=== PATIENT | female | born 2000 | race Caucasian/White ===

== ENCOUNTER 2019-08-29 02:33 | Emergency (ER) | payer BC, OTHER ==
[2019-08-29 02:44] VITALS: PULSE 85
--- NOTE | 2019-08-29 03:17 | EDM.PDOC ---
ED HPI GENERAL MEDICAL PROBLEM - General Chief Complaint: Neck Problem Stated Complaint: NECK PAIN Time Seen by Provider: 08/29/19 02:54 Source of Information: Reports: Patient History Limitations: Reports: No Limitations - History of Present Illness INITIAL COMMENTS - FREE TEXT/NARRATIVE: Ms. John is a pleasant 19-year-old woman with a past medical history significant for untreated anxiety and panic disorder, who now presents the ED stating that she smacked the back of her lower neck on the underside of a counter that she was under, when she tried to stand up up, about 2 weeks ago. Since then, she has been experiencing neck pain, back pain, headaches, left hand numbness, and she states that she lost vision out of her right eye this past 08/27/2019. She states that she has had some nausea, but no vomiting. She states that she has been going to the chiropractor and receiving ultrasound treatments, as well as adjustments, which provide temporary relief, but nothing long-lasting. She states she has been taking ibuprofen without any relief. She has not seen her PCP regarding this issue. The patient is unable to explain specifically why she decided to come to the ED at this early hour. The patient denies recent fever, chills, sore throat, ear pain, nasal or sinus congestion, cough, dyspnea, chest pain, palpitations, vomiting, constipation, diarrhea, abdominal pain, urinary symptoms, recent weight gain or weight loss, recent bloody bowel movements or black bowel movements, recent joint aches, or rashes. Here in the ED, the patient is found to be hemodynamically stable, afebrile, saturating 95% on room air. The patient's PCP is HENRY Kruse. Bilateral Neck Pain Score (Numeric/FACES): 7 - Related Data Allergies Allergy/AdvReac Type Severity Reaction Status Date / Time No Known Allergies Allergy Verified 08/29/19 02:44 Home Meds: Home Meds EPINEPHrine [Epipen] 0.3 mg SQ ONCALL PRN 09/05/14 [History] Orphenadrine [Norflex] 1 tab PO Q12H PRN #14 tab.er 08/29/19 [Rx] Past Medical History HEENT History: Reports: Impaired Vision Other HEENT History: wears glasses Musculoskeletal History: Reports: Fracture (right ankle) Psychiatric History: Reports: Anxiety (untreated), Panic Attack (untreated) - Past Surgical History Musculoskeletal Surgical History: Reports: Amputation (partial, 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 ED EXAM, UPPER BACK/NECK PAIN - Physical Exam Exam: See Below Exam Limited By: No Limitations General Appearance: Alert, WD/WN, No Apparent Distress Eye Exam: Bilateral Eye: EOMI, Normal Inspection, PERRL Ears Exam: Normal External Exam, Normal Canal, Hearing Grossly Normal, Normal TMs Nose Exam: Normal Inspection, Normal Mucousa, No Blood Throat/Mouth Exam: Normal Inspection, Normal Lips, Normal Teeth, Normal Gums, Normal Oropharynx, Normal Voice, No Airway Compromise Head Exam: Atraumatic, Normocephalic Neck Exam: Full Range of Motion, Normal Alignment, Normal Inspection (No visible abnormality to the patient's lower cervical spine/upper thoracic spine, such as swelling, erythema, ecchymosis, or abrasion) Cardiovascular/Respiratory: Regular Rate, Rhythm, No M/R/G, Normal Peripheral Pulses, No JVD, Normal Breath Sounds, No Respiratory Distress GI/Abdominal: Normal Bowel Sounds, Soft, Non-Tender, No Organomegaly, No Distention, No Abnormal Bruit, No Mass (Female) Exam: Deferred Rectal (Female) Exam: Deferred Back Exam: Normal Inspection, Full Range of Motion, NT Extremities: Normal Inspection, Normal Range of Motion, No Pedal Edema, Normal Capillary Refill 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 As Tested, No Motor/Sensory Deficits, Alert, Oriented x 3 Psychiatric: Normal Affect Skin Exam: Normal Color, Warm/Dry Course - Vital Signs Last Recorded V/S: Last Vital Signs Temp 36.3 C 08/29/19 02:40 Pulse 85 08/29/19 02:40 Resp 18 08/29/19 02:40 BP 113/74 08/29/19 02:40 Pulse Ox 95 08/29/19 02:40 - Orders/Labs/Meds Orders: Active Orders 24 hr Category Date Time Status Thoracic Spine 2V [CR] Stat Exams 08/29/19 03:07 Ordered - Re-Assessments/Exams Free Text/Narrative Re-Assessment/Exam: 08/29/19 03:08 As above, the patient struck the back of her lower neck and upper thoracic vertebrae on the underside of a counter when she attempted to get up while under it about 2 weeks ago, and since then has been experiencing neck pain, back pain, headaches, numbness to her left hand, and loss of vision from her right eye. The latter 3 symptoms are most likely due to a migraine, while the former 2 are likely due to muscle spasm related to her injury. For tonight's purposes, I have ordered x-rays of the thoracic vertebrae, in order to exclude a chip fracture to her C7/T1 spinous process. If the spinous processes are not adequately visualized, I am going to recommend that she follow-up with her PCP for an MRI, as the amount of radiation from a CT scan, in my opinion, would not be warranted for this type of injury. 08/29/19 03:34 3-view radiographs of the thoracic vertebrae appear to be grossly normal. The lower cervical and upper thoracic spinous processes are adequately visualized, and no fractures are identified. Formal read per the Radiologist pending. 08/29/19 03:39 X-ray results discussed with the patient. I explained that I think the patient' s pain is due to a muscle spasm, and I recommended that we start her on Norflex. She agreed. I will submit a prescription for a 7-day course, that she can take along with [id number] ibuprofen. If her symptoms persist despite this regimen, I recommended that she follow-up with her PCP for further evaluation. 08/29/19 03:55 Notified by Rick DYKES that the patient would like a note to have the day off of work today. Departure - Departure Time of Disposition: 03:40 Disposition: Home, Self-Care 01 Condition: Good Clinical Impression: Neck muscle spasm - Discharge Information *PRESCRIPTION DRUG MONITORING PROGRAM REVIEWED*: Not Applicable *COPY OF PRESCRIPTION DRUG MONITORING REPORT IN PATIENT CINDY: Not Applicable Referrals: Karyn Augustin PA-C [Primary Care Provider] - Forms: ED Department Discharge, ED Return to Work/School Form Additional Instructions: You were seen in the emergency room for neck and back pain, along with a headache, numbness to your left hand, and temporary loss of vision of your right eye, after smacking the back of your lower neck on the underside of a counter about 2 weeks ago. Work-up in the ER included x-rays of your lower neck and thoracic vertebrae, which returned normal. No broken bones or bone chips were found. Based on your history, physical exam, and ER x-rays, the cause of your neck and back pain is most likely due to a muscle spasm related to the injury. You have been started on the muscle relaxant Norflex, and a prescription for Norflex has been sent to the [facility], located just south and across the [address] from [facility]. Take 1 tablet of Norflex every 12 hours, starting this evening, 08/29/2019, as prescribed. Norflex works well with ibuprofen. We recommend that you take 3 tablets (600 mg ) up to every 8 hours, with food, as needed for discomfort. Your headache, left hand numbness, and vision loss could be due to a migraine. If your symptoms persist, we recommend that you follow-up with your PCP, HENRY Kruse, for further evaluation. If any other problems, please do not hesitate to return to the ER. Sepsis Event Note - Evaluation Sepsis Screening Result: No Definite Risk - Focused Exam Vital Signs: Vital Signs Temp Pulse Resp BP Pulse Ox 08/29/19 02:40 36.3 C 85 18 113/74 95 Date Exam was Performed: 08/29/19 Time Exam was Performed: 03:08 - My Orders Last 24 Hours: My Active Orders 08/29/19 03:07 Thoracic Spine 2V [CR] Stat - Assessment/Plan Last 24 Hours: My Active Orders 08/29/19 03:07 Thoracic Spine 2V [CR] Stat
[2019-08-29] MEDS ORDERED: Orphenadrine 100 MG Tab.ER PO STA (03:39)
[2019-08-29 04:01] VITALS: BP 116/72
--- NOTE | 2019-08-29 06:48 | CR ---
Thoracic spine: AP, lateral and swimmer's views of the thoracic spine were obtained. Comparison: No previous cervical spine imaging. No discrete fracture or subluxation is seen. Minimal scoliosis is noted. Pedicles are intact. Vertebral body heights and disc spaces are maintained. Impression: 1. Minimal scoliosis. 2. Nothing acute seen on 3 view thoracic spine study. Diagnostic code #2 This report was dictated in MDT
== END 2019-08-29 03:50 | disposition home or self-care (01) ==
LOC: JD.ED 02:33
DX: M62.838 Other muscle spasm (principal)
CPT/HCPCS: 72070; 99283; A9270

== ENCOUNTER 2019-12-05 00:18 | Emergency (ER) | payer SELFPAY | END 2019-12-05 00:52 | disposition left against medical advice (07) | LOC: JD.ED 00:18 | DX: Z53.21 Procedure and treatment not carried out due to patient leaving prior to being seen by health care provider (principal) ==

== ENCOUNTER 2019-12-10 01:46 | Emergency (ER) | payer SELFPAY ==
[2019-12-10 01:55] VITALS: BP 134/75; PULSE 70
[2019-12-10] MEDS ORDERED: Ketorolac 30 MG/ML SDV IM ONE (02:08)
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
[2019-12-10] MEDS ORDERED: Cyclobenzaprine 10 MG Tab PO ONE (02:12)
== END 2019-12-10 02:28 | disposition home or self-care (01) ==
LOC: JD.ED 01:46
DX: S16.1XXA Strain of muscle, fascia and tendon at neck level, initial encounter (principal); X50.1XXA Overexertion from prolonged static or awkward postures, initial encounter
CPT/HCPCS: 96372; 99283; A9270; J1885

== ENCOUNTER 2020-05-27 09:43 | Emergency (ER) | payer SELFPAY ==
[2020-05-27 09:52] VITALS: BP 132/83; PULSE 73
[2020-05-27] MEDS ORDERED: Dextrose 5%-0.9% NaCl 1,000 ML IV SCH (10:00)
--- NOTE | 2020-05-27 10:01 | EDM.PDOC ---
ED HPI GENERAL MEDICAL PROBLEM - General Chief Complaint: Neurological Problem Stated Complaint: COME OVER FROM LAB Time Seen by Provider: 05/27/20 10:00 Source of Information: Reports: Patient History Limitations: Reports: No Limitations - History of Present Illness INITIAL COMMENTS - FREE TEXT/NARRATIVE: 20-year-old female presents to the ED after suffering a syncopal episode in the clinic lab [facility] this morning. She was sitting in the chair and blood apparently was obtained then she suddenly blanked out. Patient reports that she felt her vision getting DM and lightheaded during the phlebotomy. Nursing staff and [employer] operations consultant appreciated that she seemed to have upper extremity tonic movement with clenching at the elbow that lasted about 20 seconds. She awoke shortly after and could converse normally. She denies any headache. She has no past seizure history. She has not yet had anything to eat or drink this morning. Denies any possibility of . Last menstrual period around May 01. Due for it to show up any day. Apparently all the labs that her provider Shira Weeks had ordered were obtained. Plan patient will be monitored in the ED. She will be given a liter of D5 normal saline at open. An ECG will be obtained. Onset: Today, Sudden Onset Date: 05/27/20 Onset Time: 09:25 Duration: Minutes: Location: Reports: Generalized (syncopal event occurred while having phlebotomy draw at [facility]. unreposnive for about 20 seconds with re emergence tonic movemtn of both upper arms then return to normal consciousness. ) Quality: Reports: Other (Syncopal event well having phlebotomy done.) Severity: Moderate Improves with: Reports: Other (Proved spontaneously) Worsens with: Reports: None Context: Reports: Other (Syncopal event occurred well week receiving phlebotomy at clinic lab [facility]). Denies: Activity, Exercise, Lifting, Sick Contact, Trauma Associated Symptoms: Reports: No Other Symptoms Treatments MEDICAL CONCIERGE: Reports: Other (see below) - Related Data Allergies Allergy/AdvReac Type Severity Reaction Status Date / Time No Known Allergies Allergy Verified 05/27/20 09:52 Home Meds: Home Meds . 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 Denies: Fever, Chills HEENT: Reports: No Symptoms Respiratory: Reports: No Symptoms Cardiovascular: Reports: No Symptoms Endocrine: Reports: Fatigue GI/Abdominal: Reports: Decreased Appetite : Reports: No Symptoms, Other (Is no menstrual period was April 26, 2020) Musculoskeletal: Reports: Muscle Pain, Other (Generalized aches and pains.) Skin: Reports: No Symptoms ( Being worked up to rule out lupus or connective tissue disorder. History suggest fibromyalgia syndrome.) Neurological: Reports: Other (Couple event occurred this morning during phlebotomy draw) Psychiatric: Reports: No Symptoms Hematologic/Lymphatic: Reports: No Symptoms Immunologic: Reports: No Symptoms - Physical Exam Exam: See Below Exam Limited By: No Limitations General Appearance: Alert, WD/WN, No Apparent Distress, Other (Temperature is 36.1 degrees. Heart rate 73 and sinus respiratory is 18 with O2 sats of 96% room air BP is 132/83.) Eye Exam: Bilateral Eye: Normal Inspection (No scleral icterus no blepharal pallor.), PERRL Throat/Mouth: Normal Inspection, Normal Lips, Normal Teeth, Normal Oropharynx, Other Head Exam: Atraumatic, Normocephalic, Other Neck: Normal Inspection, Supple, Non-Tender (No outward signs of any head or facial trauma.), Full Range of Motion. No: Lymphadenopathy (L), Lymphadenopathy (R) Respiratory/Chest: No Respiratory Distress, Lungs Clear, Normal Breath Sounds, No Accessory Muscle Use Cardiovascular: Normal Peripheral Pulses, Regular Rate, Rhythm, No Edema, No Gallop, No Murmur, No Rub GI/Abdominal: Normal Bowel Sounds, Soft, Non-Tender, No Organomegaly, No Mass, Pelvis Stable, Other (No surgical scars) Neuro Exam (Abbreviated): Alert, Oriented, CN II-XII Intact, Normal Cognition, Normal Reflexes, No Motor/Sensory Deficits DTR: 2+: Patella (R), Patella (L), Achilles (R), Achilles (L), 3+: Bicep (R), Bicep (L) Back Exam: Normal Inspection, Full Range of Motion. No: CVA Tenderness (L), CVA Tenderness (R) Extremities: Normal Inspection, Normal Range of Motion, Non-Tender, No Pedal Edema Psychiatric: Normal Affect, Normal Mood Skin Exam: Warm, Dry, Intact, Normal Color, No Rash #1 Interpretation EKG Date: 05/27/20 Time: 10:08 Rhythm: Other (Sinus arrhythmia. Rate varies from 60-minute to 80/min) Rate (Beats/Min): 69 [place]: Normal P-Wave: Present QRS: Other (RSR prime wave leads V1 and V2 consider normal variant) ST-T: Normal QT: Normal EKG Interpretation Comments: Essentially normal ECG Course - Vital Signs Last Recorded V/S: Last Vital Signs Temp 36.1 C 05/27/20 09:46 Pulse 73 05/27/20 09:46 Resp 18 05/27/20 09:46 BP 132/83 05/27/20 09:46 Pulse Ox 96 05/27/20 09:46 - Orders/Labs/Meds Orders: Active Orders 24 hr Category Date Time Status EKG Documentation Completion [RC] STAT Care 05/27/20 10:00 Active Dextrose 5%-0.9% NaCl [Dextrose 5%-Normal Saline] 1,000 Med 05/27/20 10:00 Active ml IV ASDIRECTED Medication Orders Dextrose/Sodium Chloride (Dextrose 5%-Normal Saline) 1,000 mls @ 999 mls/hr IV ASDIRECTED JOSÉ MIGUEL Last Admin: 05/27/20 10:11 Dose: 999 mls/hr Documented by: BARBARA Meds: Medications Generic Name Dose Route Start Last Admin Trade Name Freq PRN Reason Stop Dose Admin Dextrose/Sodium Chloride 1,000 mls @ 999 mls/hr 05/27/20 10:00 05/27/20 10:11 Dextrose 5%-Normal Saline IV 999 mls/hr ASDIRECTED [facility] Administration - Radiology Interpretation Free Text/Narrative:: 20-year-old female brought to the ED after she suffered a syncopal event during phlebotomy at the clinic lab the side of the hospital this morning. She recognized that she was experiencing dim vision and felt like she was going to go out. She stayed in the chair. Apparently she was unresponsive for about 20 seconds then went as she was regaining consciousness she had a reemergence phenomenon with tonic movement of both upper extremities at the elbow. When she regained consciousness she was alert oriented and able to answer all questions appropriately with no evidence of any seizure activity. Plan routine labs to be performed. She has not eaten or drank much in the last 24 hours. Will be given a liter of D5 normal saline at open. - Re-Assessments/Exams Free Text/Narrative Re-Assessment/Exam: 05/27/20 11:29 labs have been obtained. Sodium was 140 with potassium 3.9 chloride 103 with a bicarb of 25. Anion gap is slightly elevated to 15.9. Glucose was 91 with a BUN of 13 and a creatinine of 0.6 GFR greater than 60. Calcium was 10.1 protein 9.0 with an albumin fraction of 4.8. CRP was less than 0.2 TSH is 1.588. Sed rate was 3 normal. Total white count of 6.35 with auto differential of 63.6% neutrophils. Hemoglobin is elevated at 16.1 with hematocrit of 47.3 suggesting mild hemoconcentration platelet counts 245,000. Monospot was negative rheumatoid factor was negative. Departure - Departure Time of Disposition: 11:35 Disposition: Home, Self-Care 01 Condition: Fair Clinical Impression: Vasovagal syncope - Discharge Information *PRESCRIPTION DRUG MONITORING PROGRAM REVIEWED*: Not Applicable *COPY OF PRESCRIPTION DRUG MONITORING REPORT IN PATIENT CINDY: Not Applicable Referrals: Karyn Augustin PA-C [Primary Care Provider] - Forms: ED Department Discharge Additional Instructions: Evaluation in the emergency room today in regards to syncopal event or fainting spell that occurred while you were having blood draw at the clinic lab. You apparently went unresponsive for about 20 seconds and then when you regained consciousness you were alert oriented and could speak normal. There was no evidence of any seizure activity. I have part of the lab work that was drawn there such as a total white count hemoglobin and chemistry which is all normal. You will have to follow-up with Shira Micky for the remainder of the lab re sults checking for rheumatoid arthritis lupus etc. Today her blood volume was found to be a little on the low side and you had not yet eaten or drank yet today. Suggest at least 2 bottles of Gatorade today to bring your blood electrolytes and volume back up to normal. You did complete a full liter of IV fluids while in the ED. Sepsis Event Note (ED) - Evaluation Sepsis Screening Result: No Definite Risk - Focused Exam Vital Signs: Vital Signs Temp Pulse Resp BP Pulse Ox 05/27/20 09:46 36.1 C 73 18 132/83 96 - My Orders Last 24 Hours: My Active Orders 05/27/20 10:00 EKG Documentation Completion [RC] STAT Dextrose 5%-0.9% NaCl [Dextrose 5%-Normal Saline] 1,000 ml IV ASDIRECTED - Assessment/Plan Last 24 Hours: My Active Orders 05/27/20 10:00 EKG Documentation Completion [RC] STAT Dextrose 5%-0.9% NaCl [Dextrose 5%-Normal Saline] 1,000 ml IV ASDIRECTED
== END 2020-05-27 11:53 | disposition home or self-care (01) ==
LOC: JD.ED 09:43
DX: R55 Syncope and collapse (principal)
CPT/HCPCS: 82962; 93005; 99284; J7042; 93010

== ENCOUNTER 2020-06-11 10:51 | Emergency (ER) | payer SELFPAY ==
--- NOTE | 2020-06-11 11:31 | EDM.PDOC ---
ED HPI GENERAL MEDICAL PROBLEM - General Chief Complaint: [employer] Problem Stated Complaint: SPOTTING/6 WEEKS PG Time Seen by Provider: 06/11/20 11:05 Source of Information: Reports: Patient, RN Notes Reviewed History Limitations: Reports: No Limitations - History of Present Illness INITIAL COMMENTS - FREE TEXT/NARRATIVE: Patient is a 20-year-old female who presents to the ED for evaluation of her vaginal spotting in . Patient is a , [employer] is Dr. Velazco. The patient states that she tried calling her [employer]'s office however they were too busy and could not fit her in the schedule for today's purposes. Patient states last night she began developing some pink-tinged very light-colored vaginal spotting, no cramping or pain. She states that this continued today, and she became concerned. She believes she is 6 weeks , her last menstrual period was 04/30/2020. Patient's not had any fevers or chills, cough or shortness of breath, or any other sick-like symptoms. She denies any bright red blood or other vaginal discharge. She is not complaining of any urinary complaints like dysuria/frequency/urgency. - Related Data Allergies Allergy/AdvReac Type Severity Reaction Status Date / Time No Known Allergies Allergy Verified 06/11/20 11:07 Home Meds: Home Meds Vits #93/Iron Fum/FA [ Formula Tablet] 1 each PO DAILY 06/11/20 [History] Past Medical History HEENT History: Reports: Impaired Vision Other HEENT History: wears glasses [employer] History: Reports: Musculoskeletal History: Reports: Fracture Psychiatric History: Reports: Anxiety, Panic Attack - Past Surgical History Musculoskeletal Surgical History: Reports: Amputation Other Musculoskeletal Surgeries/Procedures:: sx on R ring finger when pt was younger Social & Family History - Family History Family Medical History: No Pertinent Family History - Tobacco Use Tobacco Use Status *Q: Never Tobacco User - Caffeine Use Caffeine Use: Reports: None - Recreational Drug Use Recreational Drug Use: No - Living Situation & Occupation Living situation: Reports: Single, with Significant Other (Boyfriend) Occupation: Employed ([employer]) ED ROS GENERAL - Review of Systems Review Of Systems: Comprehensive ROS is negative, except as noted in HPI. ED EXAM, RENAL/ - Physical Exam Exam: See Below Exam Limited By: No Limitations General Appearance: Alert, WD/WN, No Apparent Distress Respiratory/Chest: No Respiratory Distress, Lungs Clear, Normal Breath Sounds, No Accessory Muscle Use, Chest Non-Tender Cardiovascular: Normal Peripheral Pulses, Regular Rate, Rhythm GI/Abdominal: Normal Bowel Sounds, Soft, Non-Tender, No Distention, No Mass (Female) Exam: Deferred Extremities: Normal Inspection, Normal Capillary Refill Neurological: Alert, Oriented, Normal Cognition, No Motor/Sensory Deficits Psychiatric: Normal Affect, Normal Mood Skin Exam: Warm, Dry, Intact, Normal Color, No Rash Course - Vital Signs Last Recorded V/S: Last Vital Signs Temp 97.6 F 06/11/20 11:04 Pulse 79 06/11/20 11:04 Resp 16 06/11/20 11:04 BP 132/89 06/11/20 11:04 Pulse Ox 100 06/11/20 11:04 - Orders/Labs/Meds Orders: Active Orders 24 hr Category Date Time Status ABO/RH TYPE [BBK] Stat Lab 06/11/20 11:40 Received Labs: Laboratory Tests 06/11/20 06/11/20 Range/Units 11:40 11:40 WBC 8.35 (3.98-10.04) K/mm3 RBC 4.61 (3.98-5.22) M/mm3 Hgb 14.8 (11.2-15.7) gm/dl Hct 42.6 (34.1-44.9) % MCV 92.4 (79.4-94.8) fl MCH 32.1 (25.6-32.2) pg MCHC 34.7 (32.2-35.5) g/dl RDW Std Deviation 41.3 (36.4-46.3) fL Plt Count 250 (182-369) K/mm3 MPV 10.2 (9.4-12.3) fl Neut % (Auto) 71.6 H (34.0-71.1) % Lymph % (Auto) 20.6 (19.3-51.7) % [place] % (Auto) 6.8 (4.7-12.5) % Eos % (Auto) 0.5 L (0.7-5.8) Baso % (Auto) 0.4 (0.1-1.2) % Neut # (Auto) 5.98 (1.56-6.13) K/mm3 Lymph # (Auto) 1.72 (1.18-3.74) K/mm3 [place] # (Auto) 0.57 H (0.24-0.36) K/mm3 Eos # (Auto) 0.04 (0.04-0.36) K/mm3 Baso # (Auto) 0.03 (0.01-0.08) K/mm3 HCG, Quant 07803.0 mIU/mL - Re-Assessments/Exams Free Text/Narrative Re-Assessment/Exam: 06/11/20 11:30 Patient presents to the ED for her vaginal spotting in . For today's purposes we will go ahead and get a transvaginal ultrasound, get baseline labs to include hCG quantitative level, CBC, and ABO/Rh typing. The patient not having much for abdomen cramping, highly suspect this is more compatible with implementation of the fetus onto the uterus lining. 06/11/20 12:34 Patient CBC has resulted and her hemoglobin is within normal limits. Ultrasound has been performed, fetus is intrauterine, aged at 6 weeks 0 days, with a heart rate of 120 bpm. There is a small corpus luteum cyst within the maternal right ovary however there is no other subchorionic hemorrhage or source of bleeding. Again highly likely the patient was experiencing implantation of the fetus onto the uterine lining causing her bleeding. Still awaiting hCG quantitative level and ABO Rh typing. 06/11/20 13:07 The patient's hCG quantitative level was 27,091, there was an error with ABO Rh blood typing, and they were running this, the patient would not like to wait around for the results of this, we will call her and make her aware of the results as they show up. Patient was okay with this plan. Departure - Departure Time of Disposition: 13:08 Disposition: Home, Self-Care 01 Condition: Good Clinical Impression: Vaginal bleeding affecting early - Discharge Information *PRESCRIPTION DRUG MONITORING PROGRAM REVIEWED*: No *COPY OF PRESCRIPTION DRUG MONITORING REPORT IN PATIENT CINDY: No Instructions: Vaginal Bleeding During , First Trimester, [id number] Referrals: Karyn Augustin PA-C [Primary Care Provider] - Forms: ED Department Discharge Additional Instructions: You were evaluated in the ER today regarding your vaginal bleeding in . You did have some labs drawn, and these were within normal limits, your hCG level was 27,091 , there was a lab error with your blood typing; we will call you if there is any urgent need after this has been resulted, otherwise this will be available for your next OB visit. Your ultrasound demonstrated an intrauterine fetus at the gestational age of 6 weeks 0 days with a heart rate of 120 bpm. Recommend that you do not lift anything heavier than a gallon of milk (5 lbs), do not engage in sexual activities, try to get as much pelvic rest as possible for the next few days. Please try not to exert yourself, rest and relax, and take it easy. If you are bleeding through more than 1-2 maxi pads every couple hours, this would be cause for concern to return to the ER for immediate management. Please follow up with your [employer] at your next scheduled appointment. Please return to the ED at any time if your symptoms change or worsen. Sepsis Event Note (ED) - Evaluation Sepsis Screening Result: No Definite Risk - Focused Exam Vital Signs: Vital Signs Temp Pulse Resp BP Pulse Ox 06/11/20 11:04 97.6 F 79 16 132/89 100 - My Orders Last 24 Hours: My Active Orders 06/11/20 11:40 ABO/RH TYPE [BBK] Stat - Assessment/Plan Last 24 Hours: My Active Orders 06/11/20 11:40 ABO/RH TYPE [BBK] Stat
--- NOTE | 2020-06-11 12:31 | US ---
First trimester obstetrical ultrasound: Multiple real-time images were obtained transvaginally. Comparison: No previous study for current is available. Dates: Working NO: 02/04/21, gestational age 6 weeks 0 days Current ultrasound: NO 02/04/21, gestational age 6 weeks 0 days Single intrauterine gestation is seen. Small pole and yolk sac are seen. Small corpus luteum cyst is noted within the internal right ovary measuring 2.8 cm. Maternal right ovary is unremarkable. Measurements: [place]-rump length: 0.35 cm - 6 weeks 0 days BPM: 120 bpm Impression: 1. Single intrauterine gestation. Dates as noted above. 2. Small corpus luteum cyst within the maternal right ovary. 3. No etiology is seen for the patient's bleeding. Diagnostic code #1
[2020-06-11 13:38] VITALS: BP 106/61; PULSE 66
== END 2020-06-11 13:17 | disposition home or self-care (01) ==
LOC: JD.ED 10:51
DX: O20.9 Hemorrhage in early pregnancy, unspecified (principal); Z3A.01 Less than 8 weeks gestation of pregnancy
CPT/HCPCS: 36415; 76817; 76817-26; 84702; 85025; 86900; 86901; 99283; 99284-25

== ENCOUNTER 2020-06-26 07:15 | Emergency (ER) | payer MEDICAID ==
--- NOTE | 2020-06-26 07:42 | EDM.PDOC ---
ED HPI GENERAL MEDICAL PROBLEM - General Chief Complaint: Gastrointestinal Problem Stated Complaint: 8 WEEKS PREG VOMITING UNABLE TO EAT OR DRINK Time Seen by Provider: 06/26/20 07:36 Source of Information: Reports: Patient History Limitations: Reports: No Limitations - History of Present Illness INITIAL COMMENTS - FREE TEXT/NARRATIVE: 20-year-old female presents to the ED with continuous nausea and vomiting in . She is in first term of her first . Last menstrual period was April 29 with EDC set at February 04, 2021. No spotting or bleeding per vagina. She did keep down a small amount of solids yesterday at noon but nothing since. Emesis has been primarily bilious. No associated diarrhea. No previous abdominal surgery. Feels lightheaded dizzy and weak upon standing. She is currently on Reglan 5 mg tablets and she did take 1 this morning. She does not find them helping very much. Onset: Other (Has had nausea and vomiting off and on for the last 2 weeks.) Onset Date: 06/10/20 Duration: Day(s):, Waxing/Waning Location: Reports: Abdomen (intractable nausea and vomitng. ) Quality: Reports: Other (nausea with vomiting tis am.) Severity: Moderate Improves with: Reports: None, Medication (reglan 5mg tab orally has not helped. ) Context: Reports: Other (first trimester of . ). Denies: Activity, Exercise, Lifting, Sick Contact, Trauma Associated Symptoms: Reports: Nausea/Vomiting, Other (fatigue). 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 ) - Related Data Allergies Allergy/AdvReac Type Severity Reaction Status Date / Time No Known Allergies Allergy Verified 06/26/20 07:26 Home Meds: Home Meds Vits #93/Iron Fum/FA [ Formula Tablet] 1 each PO DAILY 06/11/20 [History] Metoclopramide HCl 10 mg PO TID PRN 06/26/20 [History] Sertraline [Zoloft] 25 mg PO DAILY 06/26/20 [History] Past Medical History HEENT History: Reports: Impaired Vision Other HEENT History: wears glasses [employer] History: Reports: : 1 Para: 0 LMP (Approximate): 2 Months Musculoskeletal History: Reports: Fracture Psychiatric History: Reports: Anxiety, Panic Attack - Past Surgical History Musculoskeletal Surgical History: Reports: Amputation Other Musculoskeletal Surgeries/Procedures:: sx on R ring finger when pt was younger Social & Family History - Family History Family Medical History: No Pertinent Family History - Caffeine Use Caffeine Use: Reports: None - Living Situation & Occupation Living situation: Reports: Single, with Significant Other (Boyfriend) Occupation: Employed ([employer]) ED ROS GENERAL - Review of Systems Review Of Systems: See Below Constitutional: Reports: Malaise, Weakness, Fatigue, Decreased Appetite. Denies: Fever, Chills, Weight Loss HEENT: Reports: No Symptoms Respiratory: Reports: No Symptoms Cardiovascular: Reports: No Symptoms Endocrine: Reports: No Symptoms GI/Abdominal: Reports: Nausea, Vomiting ( bilious emesis) : Reports: Frequency Musculoskeletal: Reports: No Symptoms Skin: Reports: No Symptoms Neurological: Reports: No Symptoms Psychiatric: Reports: No Symptoms Hematologic/Lymphatic: Reports: No Symptoms Immunologic: Reports: No Symptoms ED EXAM - Physical Exam Exam: See Below Exam Limited By: No Limitations General Appearance: Alert, WD/WN, No Apparent Distress, Other (Temperature is 36.4 degrees with a heart rate of 73 and sinus. Respiratory is 18 with O2 sats 100% room air BP 05[birth year]01/1971.) Eye Exam: Bilateral Eye: Normal Inspection (No scleral icterus or blepharal pallor.), PERRL Throat/Mouth: Other Head: Atraumatic, Normocephalic Neck: Normal Inspection (Tongue is mildly dry and coated.), Supple, Non-Tender, Full Range of Motion. No: Lymphadenopathy (L), Lymphadenopathy (R) Respiratory/Chest: No Respiratory Distress, Lungs Clear, Normal Breath Sounds Cardiovascular: Normal Peripheral Pulses, Regular Rate, Rhythm, No Edema, No Gallop, No JVD, No Murmur GI/Abdominal Exam: Normal Bowel Sounds, Soft, Non-Tender, No Organomegaly, No Distention, Other (Uterine fundus is not palpable abdominally. No surgical wounds.) Extremities: Normal Inspection, Normal Range of Motion, Non-Tender, No Pedal Edema Neurological: Alert, Oriented, CN II-XII Intact, Normal Cognition, Normal Gait Psychiatric: Normal Affect, Normal Mood Skin Exam: Warm, Dry, Intact, Normal Color, No Rash Course - Vital Signs Last Recorded V/S: Last Vital Signs Temp 36.4 C 06/26/20 07:20 Pulse 73 06/26/20 07:20 Resp 18 06/26/20 07:20 BP 121/72 06/26/20 07:20 Pulse Ox 100 06/26/20 07:20 Orthostatic Blood Pressure [ 112/67 Standing] Orthostatic Blood Pressure [ 114/69 Sitting] Orthostatic Blood Pressure [ 112/65 Supine] - Orders/Labs/Meds Orders: Active Orders 24 hr Category Date Time Status Orthostatic Vital Signs [RC] ASDIRECTED Care 06/26/20 07:37 Active Dextrose 5%-Lactated Ringers 1,000 ml Med 06/26/20 07:45 Active IV ASDIRECTED Medication Orders Dextrose/Lactated Ringer's (Dextrose 5%-Lactated Ringers) 1,000 mls @ 999 mls/hr IV ASDIRECTED [facility] Admin: 06/26/20 08:18 Dose: 999 mls/hr Documented by: MARCELA Labs: Laboratory Tests 06/26/20 06/26/20 06/26/20 Range/Units 08:10 08:10 09:00 WBC 10.72 H (3.98-10.04) K/mm3 RBC 4.26 (3.98-5.22) M/mm3 Hgb 13.6 (11.2-15.7) gm/dl Hct 40.3 (34.1-44.9) % MCV 94.6 (79.4-94.8) fl MCH 31.9 (25.6-32.2) pg MCHC 33.7 (32.2-35.5) g/dl RDW Std Deviation 42.5 (36.4-46.3) fL Plt Count 244 (182-369) K/mm3 MPV 10.1 (9.4-12.3) fl Neut % (Auto) 77.0 H (34.0-71.1) % Lymph % (Auto) 15.3 L (19.3-51.7) % [place] % (Auto) 6.6 (4.7-12.5) % Eos % (Auto) 0.7 (0.7-5.8) Baso % (Auto) 0.3 (0.1-1.2) % Neut # (Auto) 8.25 H (1.56-6.13) K/mm3 Lymph # (Auto) 1.64 (1.18-3.74) K/mm3 [place] # (Auto) 0.71 H (0.24-0.36) K/mm3 Eos # (Auto) 0.08 (0.04-0.36) K/mm3 Baso # (Auto) 0.03 (0.01-0.08) K/mm3 Sodium 139 (136-145) mEq/L Potassium 3.8 (3.5-5.1) mEq/L Chloride 102 (98-107) mEq/L Carbon Dioxide 27 (21-32) mEq/L Anion Gap 13.8 (5-15) BUN 9 (7-18) mg/dL Creatinine 0.5 L (0.55-1.02) mg/dL Est Cr Clr Drug Dosing 152.40 mL/min Estimated GFR (MDRD) > 60 (>60) mL/min BUN/Creatinine Ratio 18.0 (14-18) Glucose 80 (74-106) mg/dL Calcium 9.3 (8.5-10.1) mg/dL Magnesium 2.0 (1.8-2.4) mg/dl Total Bilirubin 1.0 (0.2-1.0) mg/dL AST 13 L (15-37) U/L ALT 22 (14-59) U/L Alkaline Phosphatase 65 (46-116) U/L Total Protein 7.9 (6.4-8.2) g/dl Albumin 4.1 (3.4-5.0) g/dl Globulin 3.8 gm/dL Albumin/Globulin Ratio 1.1 (1-2) Urine Color Yellow (Yellow) Urine Appearance Clear (Clear) Urine pH 7.5 (5.0-8.0) Ur Specific [place] 1.020 (1.005-1.030) Urine Protein Negative (Negative) Urine Glucose (UA) Negative (Negative) Urine Ketones Negative (Negative) Urine Occult Blood Negative (Negative) Urine Nitrite Negative (Negative) Urine Bilirubin Negative (Negative) Urine Urobilinogen 0.2 (0.2-1.0) Ur Leukocyte Esterase Negative (Negative) Urine RBC 0-5 (0-5) /hpf Urine WBC 0-5 (0-5) /hpf Ur Squamous Epith Cells 0-5 (0-5) /hpf Urine Bacteria Few (FEW) /hpf Urine Mucus Few (FEW) /hpf Meds: Medications Generic Name Dose Route Start Last Admin Trade Name Bear PRN Reason Stop Dose Admin Dextrose/Lactated Ringer's 1,000 mls @ 999 mls/hr 06/26/20 07:45 06/26/20 08:18 Dextrose 5%-Lactated Ringers IV 999 mls/hr ASDIRECTED JOSÉ MIGUEL Administration Discontinued Medications Generic Name Dose Route Start Last Admin Trade Name Freq PRN Reason Stop Dose Admin Diphenhydramine HCl 12.5 mg 06/26/20 07:45 06/26/20 08:14 Diphenhydramine 50 Mg/Ml Sdv IVPUSH 06/26/20 07:46 12.5 mg ONETIME ONE Administration Promethazine HCl 25 mg/ Sodium 51 mls @ 100 mls/hr 06/26/20 07:43 06/26/20 08:20 Chloride IV 06/26/20 08:13 100 mls/hr ONETIME ONE Administration - Radiology Interpretation Free Text/Narrative:: 20-year-old female presents to the ED with recurrent nausea and vomiting in . She did keep down little bit of food yesterday at noon. Nothing since with persistent nausea Reglan 5 mg p.o. x2 last night and again this morning without relief. She feels lightheaded weak and dizzy upon standing. Orthostatic BPs to be checked. She will have CBC CMP CRP and a urinalysis performed. Benign abdominal examination she is afebrile. IV will be D5 normal saline at open. Phenergan 25 mg IV with Benadryl 12.5 mg IV to prevent any dystonic reaction between the Reglan and the Phenergan. - Re-Assessments/Exams Free Text/Narrative Re-Assessment/Exam: 06/26/20 08:36 Hematology reveals a slightly elevated white count at 10.72. The auto differential shows 77% neutrophils. Hemoglobin is 13.6 with hematocrit of 40.3. Platelet count 244,000 06/26/20 09:23 she is feeling better as far as the nausea go and is not overwhelmingly fatigued from the Phenergan and Benadryl. Plan will be to open her IV up to full so she has a completed full liter of IV fluids infused before discharge. 06/26/20 10:21 is completed a full liter of IV fluids and feels much improved. She will be discharged to home to follow-up with her [employer] as planned. She will return if she has similar problems over the next 2 to 3 days for IV fluid replacement. Departure - Departure Time of Disposition: 10:21 Disposition: Home, Self-Care 01 Condition: Fair Clinical Impression: Nausea and vomiting during prior to 22 weeks gestation, Volume depletion - Discharge Information *PRESCRIPTION DRUG MONITORING PROGRAM REVIEWED*: Not Applicable *COPY OF PRESCRIPTION DRUG MONITORING REPORT IN PATIENT CINDY: Not Applicable Instructions: Nausea and Vomiting, Adult, [id number], Morning Sickness, [id number], Dehydration, Adult, [id number] Referrals: Karyn Augustin PA-C [Primary Care Provider] - Forms: ED Department Discharge Additional Instructions: Evaluation in the emergency room today in regards to recurrent nausea and vomiting particularly nausea off and on during this . Last meal was yesterday at noon. You were therefore treated with a liter of intravenous fluids D5 normal saline to provide hydration and fluids for the baby. Nausea and vomiting was treated with Phenergan 25 mg intravenously and Benadryl 12.5 mg IV as well. Continue Reglan tablets 5 mg every 6 hours as needed for relief of nausea vomiting. Try and keep a little something in your stomach at all times such as crackers or bread etc. Follow-up with personal care physician if any further problems occur. Try and drink sips of Gatorade or Powerade as this is almost identical to intravenous fluid replacement therapy to maintain hydration. Sepsis Event Note (ED) - Evaluation Sepsis Screening Result: No Definite Risk - Focused Exam Vital Signs: Vital Signs Temp Pulse Resp BP Pulse Ox 06/26/20 07:20 36.4 C 73 18 121/72 100 - My Orders Last 24 Hours: My Active Orders 06/26/20 07:37 Orthostatic Vital Signs [RC] ASDIRECTED 06/26/20 07:45 Dextrose 5%-Lactated Ringers 1,000 ml IV ASDIRECTED - Assessment/Plan Last 24 Hours: My Active Orders 06/26/20 07:37 Orthostatic Vital Signs [RC] ASDIRECTED 06/26/20 07:45 Dextrose 5%-Lactated Ringers 1,000 ml IV ASDIRECTED
[2020-06-26] MEDS ORDERED: Promethazine 25 MG in Sodium Chloride 0.9% 50 ML IV ONE (07:43)
[2020-06-26] MEDS ORDERED: diphenhydrAMINE 50 MG/ML SDV IVPUSH ONE (07:45)
[2020-06-26] MEDS ORDERED: Dextrose 5%-Lactated Ringers 1,000 ML IV SCH (07:45)
[2020-06-26 10:24] VITALS: BP 117/61; PULSE 68
== END 2020-06-26 10:23 | disposition home or self-care (01) ==
LOC: JD.ED 07:15
DX: O99.281 Endocrine, nutritional and metabolic diseases complicating pregnancy, first trimester (principal); E86.9 Volume depletion, unspecified; O99.111 Other diseases of the blood and blood-forming organs and certain disorders involving the immune mechanism complicating pregnancy, first trimester; D72.829 Elevated white blood cell count, unspecified; Z3A.08 8 weeks gestation of pregnancy
CPT/HCPCS: 36415; 80053; 81001; 83735; 85025; 96365; 96375; 99284; J1200; J2550; J7121; 99283

== ENCOUNTER 2020-09-01 16:32 | Emergency (ER) | payer MEDICAID ==
[2020-09-01 16:51] VITALS: BP 133/75; PULSE 82
--- NOTE | 2020-09-01 17:13 | EDM.PDOC ---
ED HPI GENERAL MEDICAL PROBLEM - General Chief Complaint: Abdominal Pain Stated Complaint: RT SIDE PAIN/ 18WEEK PREG Time Seen by Provider: 09/01/20 16:58 Source of Information: Reports: Patient History Limitations: Reports: No Limitations - History of Present Illness INITIAL COMMENTS - FREE TEXT/NARRATIVE: Patient presents with acute onset right lower quadrant pain started about 4:00 this evening. Was sharp stabbing pain. However doubled up. He is off some but still present. Not associate with any nausea or vomiting no fevers chills or sweats no coughing or cold symptoms no chest pain or breathing problems no burning pain or blood in the urine no vaginal discharge or vaginal bleeding. This is the patient's second the first 1 ended in a miscarriage and cu rrently is 18 weeks with this . She has had some morning nausea and occasional vomiting. Her initial ultrasound was at 12 weeks. Denies any vaginal pain no history of any PID, has had bacterial vaginosis and a yeast infection but no signs of any discharge with this. No back pain or flank pain no history of kidney stones or kidney infection has had some bladder infection on occasion. Right Lower Abdomen Pain Score (Numeric/FACES): 7 - Related Data Allergies Allergy/AdvReac Type Severity Reaction Status Date / Time No Known Allergies Allergy Verified 09/01/20 16:50 Home Meds: Home Meds Vits #93/Iron Fum/FA [ Formula Tablet] 1 each PO DAILY 06/11/20 [History] Past Medical History HEENT History: Reports: Impaired Vision Other HEENT History: wears glasses, contacts. 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 Psychiatric History: Reports: Anxiety, Depression, Panic Attack - Infectious Disease History Infectious Disease History: Reports: Influenza - Past Surgical History Musculoskeletal Surgical History: Reports: Amputation Other Musculoskeletal Surgeries/Procedures:: sx on R ring finger when pt was younger Social & Family History - Family History Family Medical History: No Pertinent Family History - Caffeine Use Caffeine Use: Reports: Coffee, Soda, Tea - Living Situation & Occupation Living situation: Reports: Single, with Significant Other (Boyfriend) Occupation: Employed ([employer]) ED ROS GENERAL - Review of Systems Review Of Systems: See Below Constitutional: Denies: Fever, Chills, Diaphoresis HEENT: Denies: Rhinitis, Throat Pain Respiratory: Denies: Shortness of Breath, Cough Cardiovascular: Denies: Chest Pain, Lightheadedness GI/Abdominal: Reports: Abdominal Pain, Diarrhea, Nausea, Vomiting. Denies: Black Stool, Bloody Stool, Constipation : Denies: Discharge, Dysuria, Flank Pain, Frequency, Hematuria, Pain Musculoskeletal: Denies: Back Pain Neurological: Reports: No Symptoms. Denies: Headache Psychiatric: Reports: No Symptoms ED EXAM, GI/ABD - Physical Exam Exam: See Below Exam Limited By: No Limitations General Appearance: Alert, WD/WN, No Apparent Distress Throat/Mouth: Normal Oropharynx Neck: Normal Inspection Respiratory/Chest: No Respiratory Distress, Lungs Clear, Normal Breath Sounds Cardiovascular: Normal Peripheral Pulses, Regular Rate, Rhythm, No Edema GI/Abdominal Exam: Normal Bowel Sounds, Soft, No Distention, Pelvis Stable, Tender, Other (Some mild tenderness in the right lower quadrant and right lower pelvis, no flank pain no rebound or rigidity). No: Rigid, Rebound Back Exam: No: CVA Tenderness (R) Extremities: No Pedal Edema Psychiatric: Normal Affect, Normal Mood Course - Vital Signs Text/Narrative:: Right lower quadrant pain acute onset seems very unlikely acute appendicitis, no associated symptoms. She is rule out any miscarriage, though no bleeding, no trauma fall or injury rule out kidney stone pyelonephritis ovarian pathology Last Recorded V/S: Last Vital Signs Temp 98 F 09/01/20 16:48 Pulse 82 09/01/20 16:48 Resp 16 09/01/20 16:48 BP 133/75 09/01/20 16:48 Pulse Ox 97 09/01/20 16:48 - Orders/Labs/Meds Labs: Laboratory Tests 09/01/20 09/01/20 09/01/20 Range/Units 17:36 17:36 17:36 WBC 10.26 H (3.98-10.04) K/mm3 RBC 4.01 (3.98-5.22) M/mm3 Hgb 13.2 (11.2-15.7) gm/dl Hct 37.8 (34.1-44.9) % MCV 94.3 (79.4-94.8) fl MCH 32.9 H (25.6-32.2) pg MCHC 34.9 (32.2-35.5) g/dl RDW Std Deviation 42.2 (36.4-46.3) fL Plt Count 233 (182-369) K/mm3 MPV 10.1 (9.4-12.3) fl Neut % (Auto) 72.0 H (34.0-71.1) % Lymph % (Auto) 20.8 (19.3-51.7) % [place] % (Auto) 6.1 (4.7-12.5) % Eos % (Auto) 0.5 L (0.7-5.8) Baso % (Auto) 0.3 (0.1-1.2) % Neut # (Auto) 7.39 H (1.56-6.13) K/mm3 Lymph # (Auto) 2.13 (1.18-3.74) K/mm3 [place] # (Auto) 0.63 H (0.24-0.36) K/mm3 Eos # (Auto) 0.05 (0.04-0.36) K/mm3 Baso # (Auto) 0.03 (0.01-0.08) K/mm3 Manual Slide Review Sodium 136 (136-145) mEq/L Potassium 3.5 (3.5-5.1) mEq/L Chloride 99 (98-107) mEq/L Carbon Dioxide 25 (21-32) mEq/L Anion Gap 15.5 H (5-15) BUN 14 (7-18) mg/dL Creatinine 0.6 (0.55-1.02) mg/dL Est Cr Clr Drug Dosing 127.00 mL/min Estimated GFR (MDRD) > 60 (>60) mL/min BUN/Creatinine Ratio 23.3 H (14-18) Glucose 87 (70-99) mg/dL Calcium 9.1 (8.5-10.1) mg/dL Total Bilirubin 0.5 (0.2-1.0) mg/dL AST 13 L (15-37) U/L ALT 20 (14-59) U/L Alkaline Phosphatase 60 (46-116) U/L C-Reactive Protein 0.2 (<1.0) mg/dL Total Protein 7.5 (6.4-8.2) g/dl Albumin 3.6 (3.4-5.0) g/dl Globulin 3.9 gm/dL Albumin/Globulin Ratio 0.9 L (1-2) Urine Color Yellow (Yellow) Urine Appearance Clear (Clear) Urine pH 6.0 (5.0-8.0) Ur Specific [place] > or = 1.030 (1.005-1.030) Urine Protein Negative (Negative) Urine Glucose (UA) Negative (Negative) Urine Ketones Negative (Negative) Urine Occult Blood Trace-intact H (Negative) Urine Nitrite Negative (Negative) Urine Bilirubin Negative (Negative) Urine Urobilinogen 0.2 (0.2-1.0) Ur Leukocyte Esterase Negative (Negative) Urine RBC 0-5 (0-5) /hpf Urine WBC 0-5 (0-5) /hpf Ur Squamous Epith Cells 0-5 (0-5) /hpf Urine Bacteria Few (FEW) /hpf Urine Mucus Few (FEW) /hpf Count is 10.2 hemoglobin 13.2 hematocrit of 37.8 platelet count is 233,000 sodium 136 potassium 3.5 chloride 99 CO2 is 25 BUN 14 creatinine 0.6 blood sugar is 87 calcium 9.1 LFTs are normal C-reactive protein 0.2 Urinalysis shows a clear specimen was 1.030 trace occult blood else negative. - Radiology Interpretation Free Text/Narrative:: Ultrasound with vaginal probe demonstrates 18-week single gestation with a heart rate of 148 head circumference abdominal subcomforts and femur length are all coordinating within about the same timeframe. Arcuate uterus noted there is however the what looks like a small hemorrhagic ovarian cyst on the right. No other acute findings are noted. - Re-Assessments/Exams Free Text/Narrative Re-Assessment/Exam: 09/01/20 19:45 Patient still having some pain however with no elevation of her white count normal CRP and what looks like a hemorrhagic ovarian cyst suspect is the etiology she has a follow-up with her ASSOCIATE PASTOR on Tuesday. Treated with Tylenol warm moist heat baths and given her strict return precautions. Departure - Departure Time of Disposition: 19:50 Disposition: Home, Self-Care 01 Condition: Good Clinical Impression: Hemorrhagic cyst of right ovary, Abdominal pain Qualifiers: Abdominal location: right lower quadrant Qualified Code(s): R10.31 - Right lower quadrant pain - Discharge Information Instructions: Abdominal Pain During , [id number], Viral Gastroenteritis, Adult, [id number], Ovarian Cyst, [id number] Referrals: Monisha Yuen MD [Primary Care Provider] - Forms: ED Department Discharge Additional Instructions: Follow-up with your ASSOCIATE PASTOR. Recheck tomorrow if you continue to have abdominal pain especially if is not getting better or getting worse in particular. Return to the emergency room with any increasing pain especially with fevers, vomiting, unable to pass gas or stool per rectum any worsening symptoms. Also return if any abdominal cramping especially associated with any vaginal bleeding. Sepsis Event Note (ED) - Evaluation Sepsis Screening Result: No Definite Risk - Focused Exam Vital Signs: Vital Signs Temp Pulse Resp BP Pulse Ox 09/01/20 16:48 98 F 82 16 133/75 97
--- NOTE | 2020-09-01 19:36 | US ---
Obstetrical ultrasound: Multiple real-time images were obtained transabdominally. Comparison: No previous study. Dates: Working NO: 02/04/21, gestational age 17 weeks 5 days Current ultrasound: NO 01/29/21, gestational age 18 weeks 4 days presentation: Cephalic Uterus: Anterior, uterus appears to be arcuate in configuration Amniotic fluid: AILYN 11.6 cm Measurements: BPD: 4.23 cm - 18 weeks 6 days Head circumference: 15.51 cm - 18 weeks 3 days Abdominal circumference: 12.85 cm - 18 weeks 3 days Femur length: 2.74 cm - 18 weeks 3 days Estimated weight: 238 g (0 lbs. 8 oz.), estimated weight at the 86th percentile Heart rate: 148 bpm Cervical length: 2.9 cm Maternal ovaries: Complicated area is seen within the right ovary believed to represent a small hemorrhagic cyst measuring about 2.5 cm. Maternal left ovary is unremarkable. Impression: 1. Single intrauterine fetus currently cephalic in presentation. Dates as noted above. 2. Uterus appears to have an arcuate appearance. 3. Small hemorrhagic cyst within the maternal right ovary measuring 2.5 cm. Diagnostic code #2
== END 2020-09-01 20:07 | disposition home or self-care (01) ==
LOC: JD.ED 16:32
DX: O34.82 Maternal care for other abnormalities of pelvic organs, second trimester (principal); N83.201 Unspecified ovarian cyst, right side; Z3A.18 18 weeks gestation of pregnancy
CPT/HCPCS: 36415; 76815; 76815-26; 80053; 81001; 85025; 86140; 99283; 99284-25

== ENCOUNTER 2021-01-28 13:53 | Inpatient (IN) | payer MEDICAID ==
[~2021-01-28 13:53] MED LIST: Bupivacaine 0.25% 10 ML SDV ONE
[2021-01-28] MEDS ORDERED: Sodium Chloride 0.9% 10 ML Syringe FLUSH PRN (15:12)
[2021-01-28] MEDS ORDERED: Lactated Ringers 2,000 ML ONE (15:12)
[2021-01-28] MEDS ORDERED: Nalbuphine 10 MG/1 ML Vial IVPUSH PRN (15:12)
[2021-01-28] MEDS ORDERED: Oxytocin/Lactated Ringers 10 UNIT/1,000 ML BAG IV SCH ×2 (15:15)
[2021-01-28] MEDS ORDERED: Lactated Ringers 1,000 ML IV SCH (15:15)
--- NOTE | 2021-01-28 15:28 | PCM.PREANE ---
Preanesthetic Assessment - Procedure Proposed Procedure: Labor epidural - Anesthesia/Transfusion/Family Hx Anesthesia History: Prior Anesthesia Without Reaction Family History of Anesthesia Reaction: No Transfusion History: No Prior Transfusion(s) Intubation History: Unknown - Review of Systems General: No Symptoms Pulmonary: No Symptoms Cardiovascular: No Symptoms Gastrointestinal: Abdominal Pain (uterine contractions) Neurological: No Symptoms Other: Reports: None - Physical Assessment NPO Status Date: 01/27/21 NPO Status Time: 23:00 Vital Signs: Last Vital Signs Temp 98.0 F 01/28/21 14:08 Pulse 105 H 01/28/21 14:08 Resp 18 01/28/21 14:08 BP 144/87 H 01/28/21 14:08 Pulse Ox 99 01/28/21 14:08 Height: 1.63 m Weight: 77.564 kg ASA Class: 2 Mental Status: Alert & Oriented x3 Airway Class: Mallampati = 2 Thyro-Mental Finger Breadths: 3 Mouth Opening Finger Breadths: 3 ROM/Head Extension: Full Lungs: Clear to Auscultation, Normal Respiratory Effort Cardiovascular: Regular Rate, Regular Rhythm, No Murmurs - Lab Values: Awaiting lab results - Allergies Allergies/Adverse Reactions: Allergies Allergy/AdvReac Type Severity Reaction Status Date / Time No Known Allergies Allergy Verified 01/02/21 16:02 - Acknowledgements Anesthesia Type Planned: Epidural Pt an Appropriate Candidate for the Planned Anesthesia: Yes Alternatives and Risks of Anesthesia Discussed w Pt/Guardian: Yes Pt/Guardian Understands and Agrees with Anesthesia Plan: Yes PreAnesthesia Questionnaire - Past Health History Medical/Surgical History: Denies Medical/Surgical History HEENT History: Reports: Impaired Vision Other HEENT History: wears glasses, contacts. 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 Neurological History: Reports: None Psychiatric History: Reports: Anxiety, Depression, Panic Attack Endocrine/Metabolic History: Reports: None Hematologic History: Reports: None Immunologic History: Reports: None Oncologic (Cancer) History: Reports: None - Infectious Disease History Infectious Disease History: Reports: Influenza - Past Surgical History Musculoskeletal Surgical History: Reports: Amputation Other Musculoskeletal Surgeries/Procedures:: sx on R ring finger when pt was younger - SUBSTANCE USE Tobacco Use Status *Q: Never Tobacco User Tobacco Use Within Last Twelve Months: No Second Hand Smoke Exposure: No Days Per Week of Alcohol Use: 0 Number of Drinks Per Day: 0 Total Drinks Per Week: 0 Recreational Drug Use History: No - HOME MEDS Home Medications: Home Meds Vits #93/Iron Fum/FA [ Formula Tablet] 1 each PO DAILY 06/11/20 [History] - CURRENT (IN HOUSE) MEDS Current Meds: Current Medications Lactated Ringer's (Ringers, Lactated) 1,000 mls @ 100 mls/hr IV ASDIRECTED JOSÉ MIGUEL Oxytocin/Lactated Ringer's (Pitocin In Lr 10 Units/1,000 Ml) 10 unit in 1,000 mls @ 12 mls/hr IV TITRATE JOSÉ MGIUEL; Protocol Oxytocin/Lactated Ringer's (Pitocin In Lr 10 Units/1,000 Ml) 10 unit in 1,000 mls @ 500 mls/hr IV .CONTINUOUS JOSÉ MIGUEL Nalbuphine HCl (Nalbuphine 10 Mg/1 Ml Vial) 10 mg IVPUSH Q2H PRN PRN Reason: Pain Sodium Chloride (Sodium Chloride 0.9% 10 Ml Syringe) 10 ml FLUSH ASDIRECTED PRN PRN Reason: Keep Vein Open Discontinued Medications Lactated Ringer's (Ringers, Lactated) Confirm Administered Dose 2,000 mls @ as directed .ROUTE .STK-MED ONE Stop: 01/28/21 15:13
[2021-01-28] MEDS ORDERED: Bupivacaine/fentaNYL/NS 100 ML Bag EPIDUR PRN (15:34)
[2021-01-28] MEDS ORDERED: fentaNYL 100 MCG/2 ML SDV EPIDUR PRN (15:34)
[2021-01-28] MEDS ORDERED: diphenhydrAMINE 50 MG/ML SDV IVPUSH PRN (15:34)
[2021-01-28] MEDS ORDERED: ePHEDrine 50 MG/ML SDV IVPUSH PRN (15:34)
[2021-01-28] MEDS ORDERED: fentaNYL 100 MCG/2 ML SDV ONE ×2 (15:59→16:04)
--- NOTE | 2021-01-28 21:33 | PCM.LDHP ---
L&D History of Present Illness - General Date of Service: 01/28/21 Admit Problem/Dx: Patient Status Order with Admit Dx/Problem 01/28/21 14:03 Patient Status [ADT] Routine Admission Diagnosis/Problem Admission Diagnosis/Problem Source of Information: Patient History Limitations: Reports: No Limitations - History of Present Illness Introduction:: Patient is a 21 y/o at 39 1/7 wks who presented to L&D earlier today in labor. Currently feeling well. Epidural in place Pain Score: 10 - Related Data Allergies/Adverse Reactions: Allergies Allergy/AdvReac Type Severity Reaction Status Date / Time latex Allergy Rash Verified 01/29/21 01:31 Home Medications: Home Meds Vits #93/Iron Fum/FA [ Formula Tablet] 1 each PO DAILY 06/11/20 [History] Past Medical History HEENT History: Reports: Impaired Vision Other HEENT History: wears glasses, contacts. 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 Psychiatric History: Reports: Anxiety, Depression, Panic Attack - Past Surgical History Musculoskeletal Surgical History: Reports: Other (See Below) (left ring finger procedure) Social & Family History - Family History Family Medical History: No Pertinent Family History - Tobacco Use Tobacco Use Status *Q: Never Tobacco User Second Hand Smoke Exposure: No - Caffeine Use Caffeine Use: Reports: None - Alcohol Use Alcohol Use History: No Days Per Week of Alcohol Use: 0 Number of Drinks Per Day: 0 Total Drinks Per Week: 0 - Recreational Drug Use Recreational Drug Use: No - Living Situation & Occupation Living situation: Reports: Single, with Significant Other (Boyfriend) Occupation: Employed ([employer]) H&P Review of Systems - Review of Systems: Review Of Systems: See Below General: Reports: No Symptoms Pulmonary: Reports: No Symptoms Cardiovascular: Reports: No Symptoms Gastrointestinal: Reports: No Symptoms Genitourinary: Reports: No Symptoms Musculoskeletal: Reports: No Symptoms Skin: Reports: No Symptoms Neurological: Reports: No Symptoms L&D Exam - Exam Exam: See Below - Vital Signs Vital Signs: Last Vital Signs Temp 36.7 C 01/28/21 15:12 Pulse 99 01/28/21 15:12 Resp 16 01/28/21 15:12 BP 144/87 H 01/28/21 15:12 Pulse Ox 100 01/28/21 15:12 Weight: 77.564 kg - OB Specific Contraction Intensity: Moderate to Strong Movement: Active Heart Tones: Present Heart Tones per Min: 120 Heart Rate (FHR) Variability: Moderate (6-25 bpm) Presentation: Vertex - Mac Score Mac Score Cervix Position: Anterior Mac Score Consistency: Soft Mac Score Effacement: >80% Mac Score Dilation: > 5 cm Mac Score Infant's Station: -1 ,0 Mac Score Total: 12 - Exam General: Alert, Oriented, Cooperative Lungs: Clear to Auscultation, Normal Respiratory Effort Cardiovascular: Regular Rate, Regular Rhythm GI/Abdominal Exam: Soft, Non-Tender Genitourinary: Normal external exam Extremities: Normal Inspection Skin: Warm, Dry, Intact - Patient Data Lab Results Last 24 hrs: Laboratory Results - last 24 hr 01/28/21 01/28/21 01/28/21 Range/Units 15:15 15:40 15:40 WBC 15.42 H (3.98-10.04) K/mm3 RBC 4.23 (3.98-5.22) M/mm3 Hgb 12.4 (11.2-15.7) gm/dl Hct 39.7 (34.1-44.9) % MCV 93.9 (79.4-94.8) fl MCH 29.3 (25.6-32.2) pg MCHC 31.2 L (32.2-35.5) g/dl RDW Std Deviation 43.4 (36.4-46.3) fL Plt Count 215 (182-369) K/mm3 MPV 10.8 (9.4-12.3) fl Neut % (Auto) 83.7 H (34.0-71.1) % Lymph % (Auto) 10.6 L (19.3-51.7) % [place] % (Auto) 5.3 (4.7-12.5) % Eos % (Auto) 0 L (0.7-5.8) Baso % (Auto) 0.1 (0.1-1.2) % Neut # (Auto) 12.92 H (1.56-6.13) K/mm3 Lymph # (Auto) 1.63 (1.18-3.74) K/mm3 [place] # (Auto) 0.81 H (0.24-0.36) K/mm3 Eos # (Auto) 0.00 L (0.04-0.36) K/mm3 Baso # (Auto) 0.02 (0.01-0.08) K/mm3 SARS-CoV-2 RNA (RUBÉN) Negative (NEGATIVE) Blood Type O POSITIVE Gel Antibody Screen Negative Result Diagrams: 01/28/21 15:40 - Problem List (1) 39 weeks gestation of SNOMED Code(s): 14074554 ICD Code: Z3A.39 - 39 WEEKS GESTATION OF Status: Acute Current Visit: Yes Problem List Initiated/Reviewed/Updated: Yes Orders Last 24hrs: Active Orders 24 hr Category Date Time Status Patient Status [ADT] Routine ADT 01/28/21 14:03 Active Activity as Tolerated [RC] PFP Care 01/28/21 15:12 Active Communication Order [RC] ASDIRECTED Care 01/28/21 15:12 Active Heart Tones [RC] ASDIRECTED Care 01/28/21 15:12 Active Notify Provider [RC] ASDIRECTED Care 01/28/21 15:34 Active Notify Provider [RC] PFP Care 01/28/21 15:12 Active Notify Provider [RC] PRN Care 01/28/21 15:12 Active Peripheral IV Care [RC] . DIRECTED Care 01/28/21 15:12 Active Pump Management, Intrathecal [RC] ASDIRECTED Care 01/28/21 15:12 Active Vital Signs [RC] PER UNIT ROUTINE Care 01/28/21 14:03 Active Vital Signs [RC] PER UNIT ROUTINE Care 01/28/21 15:12 Active Regular Diet [DIET] Diet 01/28/21 Breakfast Active RAPID PLASMA REAGIN,RPR [CHEM] Routine Lab 01/28/21 15:40 Received Bupivacaine/fentaNYL/NS [fentaNYL/Bupivacaine/NS 2 MCG- Med 01/28/21 15:34 Active 0.125% 100 ML] 100 ml EPIDUR ASDIRECTED PRN Lactated Ringers [Ringers, Lactated] 1,000 ml Med 01/28/21 15:15 Active IV ASDIRECTED Nalbuphine [Nubain] Med 01/28/21 15:12 Active 10 mg IVPUSH Q2H PRN Oxytocin/Lactated Ringers [Pitocin in LR 10 Units/1,000 Med 01/28/21 15:15 Active ML] 10 unit in 1,000 ml IV .CONTINUOUS Oxytocin/Lactated Ringers [Pitocin in LR 10 Units/1,000 Med 01/28/21 15:15 Active ML] 10 unit in 1,000 ml IV TITRATE Sodium Chloride 0.9% [Saline Flush] Med 01/28/21 15:12 Active 10 ml FLUSH ASDIRECTED PRN diphenhydrAMINE [Benadryl] Med 01/28/21 15:34 Active 25 mg IVPUSH Q6H PRN ePHEDrine [ePHEDrine sulfate] Med 01/28/21 15:34 Active 5 mg IVPUSH ASDIRECTED PRN fentaNYL [Sublimaze] Med 01/28/21 15:34 Active 100 mcg EPIDUR Q3H PRN Electronic Heart Tones Ext w TOCO [WOMSER] Oth 01/28/21 15:12 Ordered Routine Electronic Heart Tones Internal [WOMSER] Per Unit Oth 01/28/21 15:12 Ordered Routine Peripheral IV Insertion Adult [OM.PC] Routine Oth 01/28/21 15:12 Ordered Resuscitation Status Routine Resus Stat 01/28/21 14:03 Ordered Medication Orders Diphenhydramine HCl (Diphenhydramine 50 Mg/Ml Sdv) 25 mg IVPUSH Q6H PRN PRN Reason: pruritis Ephedrine Sulfate (Ephedrine 50 Mg/Ml Sdv) 5 mg IVPUSH ASDIRECTED PRN PRN Reason: Hypotension Fentanyl (Fentanyl 100 Mcg/2 Ml Sdv) 100 mcg EPIDUR Q3H PRN PRN Reason: Pain Last Admin: 01/28/21 16:08 Dose: 100 mcg Documented by: ARCADIO Fentanyl/Bupivacaine HCl (Bupivacaine/Fentanyl/Ns 100 Ml Bag) 100 ml EPIDUR ASDIRECTED PRN PRN Reason: Pain Last Admin: 01/28/21 16:09 Dose: 100 ml Documented by: ARCADIO Lactated Ringer's (Ringers, Lactated) 1,000 mls @ 100 mls/hr IV ASDIRECTED JOSÉ MIGUEL Last Admin: 01/28/21 15:27 Dose: 999 mls/hr Documented by: ARCADIO Oxytocin/Lactated Ringer's (Pitocin In Lr 10 Units/1,000 Ml) 10 unit in 1,000 mls @ 12 mls/hr IV TITRATE JOSÉ MIGUEL; Protocol Oxytocin/Lactated Ringer's (Pitocin In Lr 10 Units/1,000 Ml) 10 unit in 1,000 mls @ 500 mls/hr IV .CONTINUOUS JOSÉ MIGUEL Nalbuphine HCl (Nalbuphine 10 Mg/1 Ml Vial) 10 mg IVPUSH Q2H PRN PRN Reason: Pain Sodium Chloride (Sodium Chloride 0.9% 10 Ml Syringe) 10 ml FLUSH ASDIRECTED PRN PRN Reason: Keep Vein Open Assessment/Plan Comment:: * Labs already done * GBS negative * Epidural in place * Anticipate
--- NOTE | 2021-01-28 21:34 | PCM.DEL ---
L & D Note - General Info Date of Service: 01/28/21 - Delivery Note Labor: Spontaneous Delivery Outcome: Livebirth Delivery Method: Spontaneous Vaginal Delivery-Single Delivery Mode: Spontaneous Presentation: Left Occiput Anterior (TOD) Nuchal Cord: None Anesthesia Type: Epidural Amniotic Fluid Description: Clear Episiotomy Type: None Laceration: 1st Degree, Labial Placenta: Intact, Spontaneous Cord: 3 Vessels Estimated Blood Loss: 100 : Bulb Syringe, Stimulated, Warmed, [place] Used, Warmer Used Delivery Comments (Free Text/Narrative):: Patient found to be complete and began pushing. With maternal pushing effort head delivered form TOD presentation. No nuchal cord present. With gentle downward traction shoulders and body delivered. Infant placed on maternal abdomen. Cord clamped and cut. Cord blood obtained. Placenta allowed time to separate and expelled intact. Inspection of perineum showed a hemostatic first degree laceration. Not repaired. - General Info Date of Service: 01/28/21 - Patient Data Vitals - Most Recent: Last Vital Signs Temp 36.7 C 01/28/21 15:12 Pulse 99 01/28/21 15:12 Resp 16 01/28/21 15:12 BP 144/87 H 01/28/21 15:12 Pulse Ox 100 01/28/21 15:12 Weight - Most Recent: 77.564 kg Lab Results Last 24 Hours: Laboratory Results - last 24 hr 01/28/21 01/28/21 01/28/21 Range/Units 15:15 15:40 15:40 WBC 15.42 H (3.98-10.04) K/mm3 RBC 4.23 (3.98-5.22) M/mm3 Hgb 12.4 (11.2-15.7) gm/dl Hct 39.7 (34.1-44.9) % MCV 93.9 (79.4-94.8) fl MCH 29.3 (25.6-32.2) pg MCHC 31.2 L (32.2-35.5) g/dl RDW Std Deviation 43.4 (36.4-46.3) fL Plt Count 215 (182-369) K/mm3 MPV 10.8 (9.4-12.3) fl Neut % (Auto) 83.7 H (34.0-71.1) % Lymph % (Auto) 10.6 L (19.3-51.7) % [place] % (Auto) 5.3 (4.7-12.5) % Eos % (Auto) 0 L (0.7-5.8) Baso % (Auto) 0.1 (0.1-1.2) % Neut # (Auto) 12.92 H (1.56-6.13) K/mm3 Lymph # (Auto) 1.63 (1.18-3.74) K/mm3 [place] # (Auto) 0.81 H (0.24-0.36) K/mm3 Eos # (Auto) 0.00 L (0.04-0.36) K/mm3 Baso # (Auto) 0.02 (0.01-0.08) K/mm3 SARS-CoV-2 RNA (RUBÉN) Negative (NEGATIVE) Blood Type O POSITIVE Gel Antibody Screen Negative - Problem List & Annotations (1) 39 weeks gestation of SNOMED Code(s): 92187961 Code(s): Z3A.39 - 39 WEEKS GESTATION OF Status: Acute Current Visit: Yes (2) Vaginal delivery SNOMED Code(s): 936092175 Code(s): O80 - ENCOUNTER FOR FULL-TERM UNCOMPLICATED DELIVERY Status: Acute Current Visit: Yes - Problem List Review Problem List Initiated/Reviewed/Updated: Yes - My Orders Last 24 Hours: My Active Orders 01/28/21 Breakfast Regular Diet [DIET] 01/28/21 14:03 Patient Status [ADT] Routine Vital Signs [RC] PER UNIT ROUTINE Resuscitation Status Routine 01/28/21 15:12 Activity as Tolerated [RC] PFP Communication Order [RC] ASDIRECTED Heart Tones [RC] ASDIRECTED Notify Provider [RC] PFP Notify Provider [RC] PRN Peripheral IV Care [RC] . DIRECTED Pump Management, Intrathecal [RC] ASDIRECTED Vital Signs [RC] PER UNIT ROUTINE Nalbuphine [Nubain] 10 mg IVPUSH Q2H PRN Sodium Chloride 0.9% [Saline Flush] 10 ml FLUSH ASDIRECTED PRN Electronic Heart Tones Ext w TOCO [WOMSER] Routine Electronic Heart Tones Internal [WOMSER] Per Unit Routine Peripheral IV Insertion Adult [OM.PC] Routine 01/28/21 15:15 Lactated Ringers [Ringers, Lactated] 1,000 ml IV ASDIRECTED Oxytocin/Lactated Ringers [Pitocin in LR 10 Units/1,000 ML] 10 unit in 1,000 ml IV .CONTINUOUS Oxytocin/Lactated Ringers [Pitocin in LR 10 Units/1,000 ML] 10 unit in 1,000 ml IV TITRATE 01/28/21 15:40 RAPID PLASMA REAGIN,RPR [CHEM] Routine - Assessment Assessment:: PPD#0 - Plan Plan:: * Routine cares * Breast feeding * Discharge gera in 2 days
[2021-01-28] MEDS ORDERED: Benzocaine/Menthol 20%-0.5% Spray 78 GM Cannister TOP PRN (22:30)
[2021-01-28] MEDS ORDERED: Docusate Sodium 100 MG Cap PO PRN (22:30)
[2021-01-28] MEDS: Witch Hazel Medicated Pads 40/Jar TOP PRN (22:50)
[2021-01-28] MEDS: Ibuprofen 600 MG Tab PO PRN (22:51)
[2021-01-29] MEDS: Acetaminophen 325 MG Tab PO PRN ×4 (03:11→23:09)
--- NOTE | 2021-01-29 07:30 | PCM48HPAN ---
Post Anesthesia Note - EVALUATION WITHIN 48HRS OF ANESTHETIC Vital Signs in Normal Range: Yes Patient Participated in Evaluation: Yes Respiratory Function Stable: Yes Airway Patent: Yes Cardiovascular Function Stable: Yes Hydration Status Stable: Yes Pain Control Satisfactory: Yes Nausea and Vomiting Control Satisfactory: Yes Mental Status Recovered: Yes Vital Signs: Last Vital Signs Temp 97.2 F 01/29/21 03:00 Pulse 91 01/29/21 03:00 Resp 16 01/29/21 03:00 BP 137/77 01/29/21 03:00 Pulse Ox 100 01/29/21 03:00
--- NOTE | 2021-01-29 07:45 | PCM.PNPP ---
- General Info Date of Service: 01/29/21 Functional Status: Reports: Pain Controlled, Tolerating Diet, Ambulating, Urinating - Review of Systems General: Reports: No Symptoms Pulmonary: Reports: No Symptoms Cardiovascular: Reports: No Symptoms Gastrointestinal: Reports: No Symptoms Genitourinary: Reports: No Symptoms Musculoskeletal: Reports: No Symptoms - General Info Date of Service: 01/29/21 - Patient Data Vital Signs - Most Recent: Last Vital Signs Temp 36.2 C 01/29/21 03:00 Pulse 91 01/29/21 03:00 Resp 16 01/29/21 03:00 BP 137/77 01/29/21 03:00 Pulse Ox 100 01/29/21 03:00 Weight - Most Recent: 77.564 kg I&O - Last 24 Hours: Intake & Output 01/28/21 01/29/21 01/29/21 22:59 06:59 14:59 Intake Total 2800 Output Total 250 146 Balance -250 2654 Lab Results - Last 24 Hours: Laboratory Results - last 24 hr 01/28/21 01/28/21 01/28/21 Range/Units 15:15 15:40 15:40 WBC 15.42 H (3.98-10.04) K/mm3 RBC 4.23 (3.98-5.22) M/mm3 Hgb 12.4 (11.2-15.7) gm/dl Hct 39.7 (34.1-44.9) % MCV 93.9 (79.4-94.8) fl MCH 29.3 (25.6-32.2) pg MCHC 31.2 L (32.2-35.5) g/dl RDW Std Deviation 43.4 (36.4-46.3) fL Plt Count 215 (182-369) K/mm3 MPV 10.8 (9.4-12.3) fl Neut % (Auto) 83.7 H (34.0-71.1) % Lymph % (Auto) 10.6 L (19.3-51.7) % [place] % (Auto) 5.3 (4.7-12.5) % Eos % (Auto) 0 L (0.7-5.8) Baso % (Auto) 0.1 (0.1-1.2) % Neut # (Auto) 12.92 H (1.56-6.13) K/mm3 Lymph # (Auto) 1.63 (1.18-3.74) K/mm3 [place] # (Auto) 0.81 H (0.24-0.36) K/mm3 Eos # (Auto) 0.00 L (0.04-0.36) K/mm3 Baso # (Auto) 0.02 (0.01-0.08) K/mm3 RPR Non-reactive (NONREACTIVE) SARS-CoV-2 RNA (RUBÉN) Negative (NEGATIVE) Blood Type Gel Antibody Screen 01/28/21 Range/Units 15:40 WBC (3.98-10.04) K/mm3 RBC (3.98-5.22) M/mm3 Hgb (11.2-15.7) gm/dl Hct (34.1-44.9) % MCV (79.4-94.8) fl MCH (25.6-32.2) pg MCHC (32.2-35.5) g/dl RDW Std Deviation (36.4-46.3) fL Plt Count (182-369) K/mm3 MPV (9.4-12.3) fl Neut % (Auto) (34.0-71.1) % Lymph % (Auto) (19.3-51.7) % [place] % (Auto) (4.7-12.5) % Eos % (Auto) (0.7-5.8) Baso % (Auto) (0.1-1.2) % Neut # (Auto) (1.56-6.13) K/mm3 Lymph # (Auto) (1.18-3.74) K/mm3 [place] # (Auto) (0.24-0.36) K/mm3 Eos # (Auto) (0.04-0.36) K/mm3 Baso # (Auto) (0.01-0.08) K/mm3 RPR (NONREACTIVE) SARS-CoV-2 RNA (RUBÉN) (NEGATIVE) Blood Type O POSITIVE Gel Antibody Screen Negative Med Orders - Current: Current Medications Acetaminophen (Acetaminophen 325 Mg Tab) 650 mg PO Q4H PRN PRN Reason: mild pain or fever Last Admin: 01/29/21 03:11 Dose: 650 mg Documented by: Benzocaine/Menthol (Benzocaine/Menthol 20%-0.5% [place] 78 Gm Cannister) 0 gm TOP ASDIRECTED PRN PRN Reason: Perineal Comfort Measure Last Admin: 01/28/21 22:51 Dose: 1 can Documented by: Docusate Sodium (Docusate Sodium 100 Mg Cap) 100 mg PO BID PRN PRN Reason: Constipation Ibuprofen (Ibuprofen 600 Mg Tab) 600 mg PO Q6H PRN PRN Reason: Mild pain or fever Last Admin: 01/28/21 22:51 Dose: 600 mg Documented by: Lore Ballard (Lore Ballard Medicated Pads 40/Jar) 1 pad TOP ASDIRECTED PRN PRN Reason: Perineal Comfort Measure Last Admin: 01/28/21 22:50 Dose: 1 tub Documented by: Discontinued Medications Diphenhydramine HCl (Diphenhydramine 50 Mg/Ml Sdv) 25 mg IVPUSH Q6H PRN PRN Reason: pruritis Last Admin: 01/28/21 22:16 Dose: 25 mg Documented by: Ephedrine Sulfate (Ephedrine 50 Mg/Ml Sdv) 5 mg IVPUSH ASDIRECTED PRN PRN Reason: Hypotension Fentanyl (Fentanyl 100 Mcg/2 Ml Sdv) 100 mcg EPIDUR Q3H PRN PRN Reason: Pain Last Admin: 01/28/21 16:08 Dose: 100 mcg Documented by: Fentanyl (Fentanyl 100 Mcg/2 Ml Sdv) Confirm Administered Dose 100 mcg .ROUTE .STK-MED ONE Stop: 01/28/21 16:00 Last Admin: 01/28/21 19:23 Dose: Not Given Documented by: Fentanyl (Fentanyl 100 Mcg/2 Ml Sdv) Confirm Administered Dose 100 mcg .ROUTE .STK-MED ONE Stop: 01/28/21 16:05 Last Admin: 01/28/21 19:21 Dose: Not Given Documented by: Fentanyl/Bupivacaine HCl (Bupivacaine/Fentanyl/Ns 100 Ml Bag) 100 ml EPIDUR ASDIRECTED PRN PRN Reason: Pain Last Admin: 01/28/21 16:09 Dose: 100 ml Documented by: Lactated Ringer's (Ringers, Lactated) 1,000 mls @ 100 mls/hr IV ASDIRECTED JOSÉ MIGUEL Last Admin: 01/28/21 15:27 Dose: 999 mls/hr Documented by: Oxytocin/Lactated Ringer's (Pitocin In Lr 10 Units/1,000 Ml) 10 unit in 1,000 mls @ 12 mls/hr IV TITRATE JOSÉ MIGUEL; Protocol Oxytocin/Lactated Ringer's (Pitocin In Lr 10 Units/1,000 Ml) 10 unit in 1,000 mls @ 500 mls/hr IV .CONTINUOUS JOSÉ MIGUEL Last Admin: 01/28/21 21:22 Dose: 500 mls/hr Documented by: Lactated Ringer's (Ringers, Lactated) Confirm Administered Dose 2,000 mls @ as directed .ROUTE .STK-MED ONE Stop: 01/28/21 15:13 Last Admin: 01/28/21 15:27 Dose: Not Given Documented by: Nalbuphine HCl (Nalbuphine 10 Mg/1 Ml Vial) 10 mg IVPUSH Q2H PRN PRN Reason: Pain Sodium Chloride (Sodium Chloride 0.9% 10 Ml Syringe) 10 ml FLUSH ASDIRECTED PRN PRN Reason: Keep Vein Open - Infant Interaction Infant Disposition, : [place] in Room with Family Interaction: Holding Infant Feeding: Attempted ; Nursed Fair/Poor Support Person: Significant Other - Recovery Exam Fundal Tone: Firm Fundal Level: At Umbilicus Fundal Placement: Midline Lochia Amount: Small Lochia Color: Rubra/Red Perineum Description: Edematous Episiotomy/Laceration: None Bladder Status: Voiding Urinary Elimination: Voided - Exam General: Alert, Oriented, Cooperative GI/Abdominal Exam: Soft, Non-Tender - Problem List & Annotations (1) 39 weeks gestation of SNOMED Code(s): 27880712 Code(s): Z3A.39 - 39 WEEKS GESTATION OF Status: Acute Current Visit: Yes (2) Vaginal delivery SNOMED Code(s): 901189096 Code(s): O80 - ENCOUNTER FOR FULL-TERM UNCOMPLICATED DELIVERY Status: Acute Current Visit: Yes - Problem List Review Problem List Initiated/Reviewed/Updated: Yes - My Orders Last 24 Hours: My Active Orders 01/28/21 Breakfast Regular Diet [DIET] 01/28/21 14:03 Resuscitation Status Routine 01/28/21 22:30 Acetaminophen [TylenoL] 650 mg PO Q4H PRN Benzocaine/Menthol [Dermoplast Pain Relief 20%-0.5% [place]] See Dose Instructions TOP ASDIRECTED PRN Docusate Sodium [Colace] 100 mg PO BID PRN Ibuprofen [Motrin] 600 mg PO Q6H PRN witch [place] [Tucks] 1 pad TOP ASDIRECTED PRN Heat Therapy [OM.PC] PRN 01/28/21 22:30 Activity as Tolerated [RC] PER UNIT ROUTINE Vital Signs [RC] 03,09,15,21 Assess Lochia [WOMSER] Per Unit Routine Assess Uterine Involution [WOMSER] Per Unit Routine Breast Pump [WOMSER] Per Unit Routine Ice Therapy [OM.PC] Per Unit Routine Perineal Care [OM.PC] Per Unit Routine Peripheral IV Discontinue [OM.PC] Routine Sitz Bath [OM.PC] Per Unit Routine 01/29/21 22:30 Heat Therapy [OM.PC] PRN - Assessment Assessment:: PPD#1 - Plan Plan:: * Routine cares * Breast feeding * Discharge home tomorrow
[2021-01-29] MEDS: Ibuprofen 600 MG Tab PO PRN ×3 (07:59→21:42)
--- NOTE | 2021-01-30 06:56 | PCM.DCSUM1 ---
Discharge Summary - Discharge Data Discharge Date: 01/30/21 Discharge Disposition: Home, Self-Care 01 Condition: Good - Referral to Home Health Primary Care Physician: Luz Vargas MD - Discharge Diagnosis/Problem(s) (1) 39 weeks gestation of SNOMED Code(s): 91900028 ICD Code: Z3A.39 - 39 WEEKS GESTATION OF Status: Acute (2) Vaginal delivery SNOMED Code(s): 423638170 ICD Code: O80 - ENCOUNTER FOR FULL-TERM UNCOMPLICATED DELIVERY Status: Acute - Patient Summary/Data Complications: None Consults: None Recommended Follow-up Testing/Procedures: Follow up in 3 weeks Hospital Course: 21 y/o at 39 1/7 wks who presented in labor. Progressed well and underwent an uncomplicated . See delivery note. did well. Was discharged home on PPD#2 - Patient Instructions Diet: Regular Diet as Tolerated Activity: As Tolerated Activity, Other: Pelvic rest for 6 weeks Driving: May Drive Today Showering/Bathing: May Shower Showering/Bathing, Other: May Bathe Notify Provider of: Fever, Increased Pain, Swelling and Redness, Drainage, Nausea and/or Vomiting - Discharge Plan *PRESCRIPTION DRUG MONITORING PROGRAM REVIEWED*: No *COPY OF PRESCRIPTION DRUG MONITORING REPORT IN PATIENT CINDY: No Home Medications: Home Meds Vits #93/Iron Fum/FA [ Formula Tablet] 1 each PO DAILY 06/11/20 [History] Docusate Sodium [Colace] 100 mg PO BID PRN cap 01/30/21 [Rx] Ibuprofen [Motrin] 600 mg PO Q6H PRN tablet 01/30/21 [Rx] Patient Handouts: Care After Vaginal Delivery Referrals: Luz Vargas MD [Primary Care Provider] - (3 weeks for check. Please call for your appointment. ) - Discharge Summary/Plan Comment DC Time >30 min.: No Total # of Minutes for Discharge Time: 15 - Patient Data Vitals - Most Recent: Last Vital Signs Temp 36.1 C 01/30/21 02:27 Pulse 70 01/30/21 02:27 Resp 12 01/30/21 02:27 BP 106/64 01/30/21 02:27 Pulse Ox 98 01/30/21 02:27 Weight - Most Recent: 77.564 kg Med Orders - Current: Current Medications Acetaminophen (Acetaminophen 325 Mg Tab) 650 mg PO Q4H PRN PRN Reason: mild pain or fever Last Admin: 01/29/21 23:09 Dose: 650 mg Documented by: Benzocaine/Menthol (Benzocaine/Menthol 20%-0.5% [place] 78 Gm Cannister) 0 gm TOP ASDIRECTED PRN PRN Reason: Perineal Comfort Measure Last Admin: 01/28/21 22:51 Dose: 1 can Documented by: Docusate Sodium (Docusate Sodium 100 Mg Cap) 100 mg PO BID PRN PRN Reason: Constipation Ibuprofen (Ibuprofen 600 Mg Tab) 600 mg PO Q6H PRN PRN Reason: Mild pain or fever Last Admin: 01/29/21 21:42 Dose: 600 mg Documented by: Lore Ballard (Lore Ballard Medicated Pads 40/Jar) 1 pad TOP ASDIRECTED PRN PRN Reason: Perineal Comfort Measure Last Admin: 01/28/21 22:50 Dose: 1 tub Documented by: Discontinued Medications Bupivacaine HCl (Bupivacaine 0.25% 10 Ml Sdv) 10 ml .ROUTE .STK-MED ONE Stop: 01/28/21 00:01 Diphenhydramine HCl (Diphenhydramine 50 Mg/Ml Sdv) 25 mg IVPUSH Q6H PRN PRN Reason: pruritis Last Admin: 01/28/21 22:16 Dose: 25 mg Documented by: Ephedrine Sulfate (Ephedrine 50 Mg/Ml Sdv) 5 mg IVPUSH ASDIRECTED PRN PRN Reason: Hypotension Fentanyl (Fentanyl 100 Mcg/2 Ml Sdv) 100 mcg EPIDUR Q3H PRN PRN Reason: Pain Last Admin: 01/28/21 16:08 Dose: 100 mcg Documented by: Fentanyl (Fentanyl 100 Mcg/2 Ml Sdv) Confirm Administered Dose 100 mcg .ROUTE .STK-MED ONE Stop: 01/28/21 16:00 Last Admin: 01/28/21 19:23 Dose: Not Given Documented by: Fentanyl (Fentanyl 100 Mcg/2 Ml Sdv) Confirm Administered Dose 100 mcg .ROUTE .STK-MED ONE Stop: 01/28/21 16:05 Last Admin: 01/28/21 19:21 Dose: Not Given Documented by: Fentanyl/Bupivacaine HCl (Bupivacaine/Fentanyl/Ns 100 Ml Bag) 100 ml EPIDUR ASDIRECTED PRN PRN Reason: Pain Last Admin: 01/28/21 16:09 Dose: 100 ml Documented by: Lactated Ringer's (Ringers, Lactated) 1,000 mls @ 100 mls/hr IV ASDIRECTED JOSÉ MIGUEL Last Admin: 01/28/21 15:27 Dose: 999 mls/hr Documented by: Oxytocin/Lactated Ringer's (Pitocin In Lr 10 Units/1,000 Ml) 10 unit in 1,000 mls @ 12 mls/hr IV TITRATE JOSÉ MIGUEL; Protocol Oxytocin/Lactated Ringer's (Pitocin In Lr 10 Units/1,000 Ml) 10 unit in 1,000 mls @ 500 mls/hr IV .CONTINUOUS JOSÉ MIGUEL Last Admin: 01/28/21 21:22 Dose: 500 mls/hr Documented by: Lactated Ringer's (Ringers, Lactated) Confirm Administered Dose 2,000 mls @ as directed .ROUTE .STK-MED ONE Stop: 01/28/21 15:13 Last Admin: 01/28/21 15:27 Dose: Not Given Documented by: Nalbuphine HCl (Nalbuphine 10 Mg/1 Ml Vial) 10 mg IVPUSH Q2H PRN PRN Reason: Pain Sodium Chloride (Sodium Chloride 0.9% 10 Ml Syringe) 10 ml FLUSH ASDIRECTED PRN PRN Reason: Keep Vein Open
[2021-01-30] MEDS: Ibuprofen 600 MG Tab PO PRN (08:52)
[2021-01-30] MEDS: Witch Hazel Medicated Pads 40/Jar TOP PRN (08:56)
[2021-01-30 11:12] VITALS: BP 119/82; PULSE 86
== END 2021-01-30 12:09 | disposition home or self-care (01) | DRG 807 ==
LOC: JD.OBCHECK 13:53 → JD.OB 13:57 → JD.OBCHECK 14:05 → JD.OB 14:06 → OBSVTOIN 21:21
PROVIDERS: ADMIT Obstetrics & Gynecology; ATTEND Obstetrics & Gynecology
PROC: 10E0XZZ Delivery of Products of Conception, External Approach (ICD-10-PCS; principal; 2021-01-28)
PROC: 0HQ9XZZ Repair Perineum Skin, External Approach (ICD-10-PCS; 2021-01-28)
PROC: 3E0R3BZ Introduction of Anesthetic Agent into Spinal Canal, Percutaneous Approach (ICD-10-PCS; 2021-01-28)
DX: O99.52 Diseases of the respiratory system complicating childbirth (principal); Z37.0 Single live birth; J45.909 Unspecified asthma, uncomplicated; O99.62 Diseases of the digestive system complicating childbirth; K59.09 Other constipation; K21.9 Gastro-esophageal reflux disease without esophagitis; O70.0 First degree perineal laceration during delivery; Z20.822 Contact with and (suspected) exposure to COVID-19; Z3A.39 39 weeks gestation of pregnancy
CPT/HCPCS: 36415; 51702; 59025; 59409; 85025; 86592; 86850; 86900; 86901; A9270-GY; J1200; J2590; J3010; J3490; J7120; U0002